=== PATIENT | male | born 1990 | race Caucasian/White ===

== ENCOUNTER 2019-09-25 09:32 | Emergency (ER) | payer OTHER, SELFPAY ==
[2019-09-25 09:33] VITALS: BP 129/77; PULSE 127; RESP 20; TEMP 36.5; O2SAT 94; BMI 45.4
[2019-09-25 09:35] VITALS: BP 129/77; PULSE 127; RESP 20; TEMP 36.5; O2SAT 94
--- NOTE | 2019-09-25 09:45 | RAD_ITS ---
STUDY: X-RAY CHEST REASON FOR EXAM: Male, 29 years old. Fever, cough and sweats. Body aches. TECHNIQUE: PA and lateral views of the chest. COMPARISON: None. FINDINGS: Increased markings at the lung bases slightly worse on the left side suggestive of bibasilar atelectasis and/or early infiltrates. Follow-up is recommended. There is no demonstrated pleural abnormality. Normal size heart. Normal mediastinum and sandy. Normal visualized pulmonary arteries. Normal visualized aortic arch and descending thoracic aorta. Normal visualized thoracic spine. Normal visualized ribs, clavicles, and shoulders. There is no demonstrated abnormality of the visualized soft tissue structures of the upper abdomen. RAD/Chest PA and Lateral IMPRESSION: Increased markings at the lung bases worse on the left side. This may represent either atelectasis and/or infiltrates. Follow-up is recommended. Electronically Signed: Min Barton, at 10:34 EST , Service support ,
--- NOTE | 2019-09-25 09:48 | ED.DCSUM_ITS ---
History of Present Illness Chief Complaint: Fever Detail of Chief Complaint: Fever, body aches, nausea Informant: Patient Onset: Days - 4 days Context: Gradual Onset Timing: Waxes and wanes Current Severity: Mild Maximum Severity: Moderate Narrative: Patient presents with fever, chills, body aches over the past 4 days. He has had mild cough. He has had some diarrhea. This morning he started having some vomiting as well. He was seen in urgent care but due to his degree of dehydration was felt he needed to come to the emergency room for fluids. T-max is 101.7. Patient has not had any medications today for his symptoms. Past Medical History - Allergies and Home Meds Allergies/Adverse Reactions: Allergies No Known Allergies Allergy (Verified 09/25/19 09:35) Primary Care Physician: NOT,DEFINED [NON-STAFF] - Prior records reviewed: Yes Past Medical History: None Lives: Spouse/ Significant Other Review of Systems General: Reports: Chills, Fever Eyes: Denies: Visual changes - bilaterally ENT: Denies: Bilateral ear pain Cardiovascular: Denies: Chest pain Respiratory: Reports: Cough. Denies: Dyspnea, Sputum Gastrointestinal: Reports: Nausea, Vomiting, Diarrhea Genitourinary: Denies: Dysuria Musculoskeletal: Reports: Myalgias Skin: Denies: Rash Neurological: Reports: Weakness - Generalized weakness Endocrine: Denies: Polyuria, Polydipsia Hematologic: Denies: Easy bruising Allergy: Denies: Uticaria Physical Exam Vital Signs/Narrative: Vital Signs Temp Pulse Resp BP Pulse Ox 09/25/19 09:33 97.7 F L 127 H 20 H 129/77 H 94 Inital Vital Signs reviewed: Yes General: Well nourished, Well developed Eyes: Perrl, EOMI ENT: Dry mucous membranes Neck: Supple Cardiovascular: Tachycardia Respiratory: No distress, CTA bilaterally Abdomen: Soft, Nontender, Hypoactive bowel sounds Extremities: Nontender Skin: Normal color, No rash Neurological: Alert, Oriented x3 Psychological: Normal affect Diagnostic/Tx/Re-eval Impressions Chest X-Ray 09/25/19 09:45 IMPRESSION: Increased markings at the lung bases worse on the left side. This may represent either atelectasis and/or infiltrates. Follow-up is recommended. Electronically Signed: Min Barton, at 10:34 EST , Service support , 09/25/19 09:45 Chest PA and Lateral [RAD] Stat 09/25/19 09:55 Mucosa - Nose Influenza Types A,B Direct FA (MATA) - Final Influenzae B Laboratory Results 09/25/19 09/25/19 09/25/19 10:05 10:05 10:30 WBC 4.7 RBC 5.29 Hgb 15.6 Hct 45.6 MCV 86.2 MCH 29.5 MCHC 34.2 RDW Std Deviation 40.8 RDW Coeff of Emma 13.1 Plt Count 169 MPV 10.3 Immature Gran % (Auto) 0.400 Neut % (Auto) 71.4 H Lymph % (Auto) 18.6 L [place] % (Auto) 8.8 Eos % (Auto) 0.2 Baso % (Auto) 0.6 Absolute Neuts (auto) 3.3 Absolute Lymphs (auto) 0.87 Nucleated RBC % 0 Sodium 139 Potassium 3.1 L Chloride 105 Carbon Dioxide 27.0 Anion Gap 7 BUN 10 Creatinine 1.15 Estim Creat Clear Calc 100.04 Est GFR (MDRD) Af Amer 96 Est GFR (MDRD) Non-Af 79 BUN/Creatinine Ratio 8.7 L Glucose 111 H Calcium 8.5 Urine Color Yellow Urine Clarity Sl. Cloudy Urine pH 7.0 Ur Specific [place] 1.010 Urine Protein 30 H Urine Glucose (UA) Normal Urine Ketones 15 H Urine Occult Blood 25 H Urine Nitrite Negative Urine Bilirubin Negative Urine Urobilinogen Normal Ur Leukocyte Esterase Negative Urine RBC 0-5 SEEN Urine WBC 0-5 SEEN Ur Squamous Epith Cells 0-5 SEEN Urine Bacteria RARE Urine Mucus 2+ - Medical Decision Making Patient is given IV fluids and Zofran here. Test results are discussed with patient and at bedside. He is positive for influenza B but is outside the window for treatment with Tamiflu. Patient does feel better with IV fluids. He will be discharged with Zofran. This time is tolerating p.o. fluids. ED Disposition - Plan for ED Patient: Disposition: Home or Assisted Living Diagnosis: Influenza B Instructions: INFLUENZA (Adult) Prescriptions: Ondansetron [Zofran Odt] 4 mg PO Q8H PRN PRN #10 tablet PRN Reason: Nausea Referrals: NOT,DEFINED [NON-STAFF] -
[2019-09-25] MEDS: Ketorolac 30 MG/ML Syringe IV (10:05)
[2019-09-25] MEDS: 0.9% Normal Saline 1,000 ML 1000 ML IV ×2 (10:05→10:30)
[2019-09-25] MEDS: Ondansetron 4 MG/2 ML Vial IV (10:05)
[2019-09-25 10:18] LABS: Absolute Lymphocyte Count 0.87 X10^3/uL (0.83-4.51); Absolute Neutrophil Count 3.3 X10^3/uL (2.0-7.7); Basophil# 0.03 X10^3/uL; Basophil% 0.6 % (0-1); Eosinophil# 0.01 X10^3/uL; Eosinophils% 0.2 % (0-5); Hematocrit 45.6 % (40-54); Hemoglobin 15.6 g/dL (13.0-16.5); Lymphocyte # 0.87 X10^3/ul (4.0); Lymphocyte % 18.6 % (19-41); Mean Corp Hgb Conc 34.2 g/dL (32-36); Mean Corpuscular Hgb 29.5 pg (27.0-32.0); Mean Corpuscular Volume 86.2 fL (80-94); Mean Platelet Vol. 10.3 fl (6.2-12.0); Monocyte# 0.41 X10^3/uL; Monocyte% 8.8 % (0-10); NRBC Flagged by Analyzer 0 % (0-5); Neutrophil # 3.34 X10^3/uL (2.7-7.7); Neutrophil % 71.4 % (47-70); Platelet Count 169 K/mm3 (150-450); RBC Distribution Width CV 13.1 % (11.6-14.6); RBC Distribution Width SD 40.8 fl (35.1-43.9); Red Blood Count 5.29 M/mm3 (4.6-6.2); White Blood Count 4.7 K/mm3 (4.4-11.0)
[2019-09-25 10:32] LABS: Anion Gap 7 (5-15); BUN 10 mg/dL (7-18); BUN/Creat Ratio 8.7 RATIO (10-20); Calcium,Total 8.5 mg/dL (8.5-10.1); Chloride 105 mmol/L (98-107); Creatinine, Serum 1.15 mg/dL (0.70-1.30); EST Glomerular Filtration Rate 79 mL/min (>60); Est Glom Filt Rate - Afr Amer 96 mL/min (>60); Estimated Creatinine Clearance 100.04 ml/min; Glucose 111 mg/dL (74-106); Potassium 3.1 mmol/L (3.5-5.1); Sodium Level 139 mmol/L (136-145)
[2019-09-25 10:46] LABS: Color, Urine Yellow (Yellow); Glucose, Dipstick Normal (Normal); Ketone-Dipstick 15 mg/dl (Negative); Leukocyte Esterase-Dipstick Negative /ul (Negative); Nitrite-Dipstick Negative (Negative); Occult Blood-Urine 25 /ul (Negative); Protein-Dipstick 30 mg/dl (Negative); Urine Bilirubin Dipstick Negative (Negative); Urine Clarity Sl. Cloudy (Clear); Urine Urobilinogen Normal (Normal)
[2019-09-25 10:53] LABS: Red Blood Cells-Urine 0-5 SEEN /hpf (0-5); Squamous Epithelial Cells - UA 0-5 SEEN /hpf (0-5); White Blood Cells 0-5 SEEN /hpf (0-5)
[2019-09-25 10:54] LABS: Bacteria RARE /hpf (None Seen); Mucous, Urine 2+ /hpf (<or=2+)
== END 2019-09-25 12:08 | disposition home or self-care (01) ==
PROVIDERS: Emergency Provider Emergency Medicine
DX: J10.1 Influenza due to other identified influenza virus with other respiratory manifestations (principal)
CPT/HCPCS: 71046; 80048; 81001; 85025; 87804; 96361; 96374; 96375; 99283; J7030; A4216; J2405